=== PATIENT | female | born 1995 | race Asian ===

== ENCOUNTER 2023-12-03 14:01 | Outpatient (CLI) | payer MEDICAID ==
[2023-12-03 15:07] LABS: ABSOLUTE RETICS # AUTO 0.058 10^6/uL (0.020-0.110); BASOPHILS # (AUTO) 0.1 10^3/uL (0.0-0.1); BASOPHILS % (AUTO) 0.9 %; EOSINOPHILS # (AUTO) 0.4 10^3/uL (0.0-0.7); EOSINOPHILS % (AUTO) 6.6 %; HCT - HEMATOCRIT 37.2 % (37.0-47.0); HGB - HEMOGLOBIN 12.2 g/dL (12.0-16.0); LYMPHOCYTES # (AUTO) 1.7 10^3/uL (1.5-3.5); LYMPHOCYTES % (AUTO) 25.5 %; MEAN CORPUSCULAR HGB CONC 32.8 g/dL (32.0-36.0); MEAN CORPUSCULAR VOLUME 88.4 fL (81.0-99.0); MEAN PLATELET VOLUME 10.2 fL (7.9-10.8); MONOCYTES # (AUTO) 0.3 10^3/uL (0.0-1.0); MONOCYTES % (AUTO) 4.8 %; PLT - PLATELET COUNT 183 10^3/uL (130-450); RED BLOOD COUNT 4.21 10^6/uL (4.20-5.40); RED CELL DISTRIBUTION WIDTH 12.3 % (12.0-15.0); RETICULOCYTE COUNT % (AUTO) 1.38 % (0.5-2.3); WHITE BLOOD COUNT 6.5 x10^3/uL (4.8-10.8)
[2023-12-03 15:23] LABS: % IRON SATURATION 17 % (20-50); ALBUMIN 4.6 g/dL (3.2-5.5); ALBUMIN/GLOBULIN RATIO 1.8 (1.0-2.2); ALKALINE PHOSPHATASE 49 IU/L (42-121); ALT ALANINE AMINOTRANSFERASE 13 IU/L (10-60); AST ASPARTATE AMINOTRANSFERASE 16 IU/L (10-42); BILIRUBIN,TOTAL 1.4 mg/dL (0.2-1.0); BUN - BLOOD UREA NITROGEN 10 mg/dL (6-20); CALCIUM 9.4 mg/dL (8.5-10.3); CARBON DIOXIDE - CO2 26 mmol/L (21-32); CHLORIDE 103 mmol/L (101-111); CHOL/HDL RATIO 2.4 (<4.4); CHOLESTEROL 191 mg/dL; CREATININE 0.6 mg/dL (0.6-1.3); GFR - MDRD 121 (>89); GLUCOSE 113 mg/dL (74-104); HDL CHOLESTEROL 80 mg/dL; IRON 54 ug/dL (50-212); LDL CHOLESTEROL,CALCULATED 96 mg/dL; LDL/HDL RATIO 1.2 (<4.4); POTASSIUM 3.6 mmol/L (3.5-4.5); SODIUM 134 mmol/L (135-145); TOTAL IRON BINDING CAPACITY 309 ug/dL (250-450); TOTAL PROTEIN 7.2 g/dL (6.4-8.9); TRANSFERRIN 221 mg/dL (203-362); TRIGLYCERIDES 76 mg/dL (48-352); VLDL CHOLESTEROL 15 mg/dL
[2023-12-03 15:31] LABS: HCG,QUALITATIVE BLOOD NEGATIVE
[2023-12-03 15:40] LABS: THYROID STIMULATING HORMONE 1.15 uIU/mL (0.34-5.60)
[2023-12-03 15:47] LABS: FERRITIN 27.6 ng/mL (11.0-306.8)
[2023-12-03 20:23] LABS: CHLAMYDIA TRACHOMATIS DNA NEGATIVE (NEGATIVE); NEISSERIA GONORRHOEAE DNA NEGATIVE (NEGATIVE); TRICHOMONAS VAGINALIS DNA NEGATIVE (NEGATIVE)
[2023-12-04 03:11] LABS: HCV AB Non Reactive (Non Reactive)
[2023-12-04 07:11] LABS: HBsAG SCREEN Negative (Negative); HEPATITIS B SURFACE AB QUANT <3.1 mIU/mL (Immunity>9.9); RPR Non Reactive (Non Reactive); VITAMIN D 25-HYDROXY 39.7 ng/mL (30.0-100.0)
[2023-12-04 08:10] LABS: MEASLES ANTIBODIES IGG 91.2 AU/mL (Immune >16.4); MUMPS ANTIBODIES IGG 50.1 AU/mL (Immune >10.9); VARICELLA-ZOSTER AB IGG 668 index (Immune >165)
[2023-12-05 11:11] LABS: LEAD BLOOD (ADULT) <1.0 ug/dL (0.0-3.4)
[2023-12-05 17:09] LABS: HCV IU/ML HCV Not Detected IU/mL (.)
[2023-12-05 20:08] LABS: VARICELLA-ZOSTER AB IGM <0.91 index (0.00-0.90)
== END 2023-12-03 14:02 | disposition home or self-care (01) ==
LOC: LAB 14:01
PROVIDERS: ATTEND Physician Assistant Medical
DX: Z13.9 Encounter for screening, unspecified (principal)
CPT/HCPCS: 36415; 80053; 80061; 81599; 82306; 82607; 82728; 82746; 83540; 83655; 83721; 84443; 84466; 84703; 85025; 85045; 86317; 86592; 86704; 86709; 86735; 86762; 86765; 86787; 86803; 87340; 87491; 87522; 87591; 87661